=== PATIENT | male | born 1970 | race Caucasian/White ===

== ENCOUNTER 2020-12-23 18:34 | Observation (INO) | payer OTHER, SELFPAY ==
[2020-12-23] VITALS (15 sets, daily range): BP systolic 110–150; BP diastolic 56–74; PULSE 54–66; RESP 17–38; TEMP 36.2; O2SAT 97–100; BMI 41.2
--- NOTE | 2020-12-23 18:37 | DI.RAD.S_ITS ---
PROCEDURE: XR CHEST 1V INDICATIONS: feels of balance, n/v, tingling TECHNIQUE: One view of the chest was acquired. COMPARISON: None. FINDINGS: Surgical changes and devices: None. Lungs and pleura: Lungs are clear. No pleural effusions or pneumothorax. Minimal right basilar atelectasis and infiltrate medially. Mediastinum: Mediastinal contours appear normal. Heart size is normal. Bones and chest wall: No suspicious bony lesions. Overlying soft tissues appear unremarkable. Clavicular cortical sideplate and screws in good position. IMPRESSION: Minimal right basilar atelectasis and or infiltrate Approved by: Олег Garzon M.D. on 12/23/2020 at 18:14
--- NOTE | 2020-12-23 18:37 | DI.CT.S_ITS ---
PROCEDURE: CT HEAD/BRAIN WO CON INDICATIONS: feels off balance, tingling TECHNIQUE: Noncontrast 4.5 mm thick angled axial sections acquired from the foramen magnum to the vertex, with coronal and sagittal reformats. For radiation dose reduction, the following was used: automated exposure control, adjustment of mA and/or kV according to patient size. COMPARISON: None. FINDINGS: Image quality: Excellent. CSF spaces: Basal cisterns are patent. No extra-axial fluid collections. Ventricles are normal in size and shape. Brain: No midline shift. No intracranial masses or hemorrhage. Bal-white matter interface is normal. Skull and face: Calvarium and visualized facial bones are intact, without suspicious lesions. Sinuses: Visualized sinuses and mastoids are clear. IMPRESSION: No evidence acute stroke, hemorrhage, or mass. Dictated by: Duncan Gan M.D. on 12/23/2020 at 19:25 Approved by: Duncan Gan M.D. on 12/23/2020 at 19:25
[2020-12-23] MEDS: ASPIRIN 81 MG CHEW TAB 324 MG PO (19:34)
[2020-12-23] MEDS: SODIUM CHLORIDE 0.9% 1,000 ML 150 ML IV (19:34)
[2020-12-23 19:44] LABS: Add Manual Diff / Slide Review NO; Basophils Absolute Auto 100 /uL (0-100); Basophils Percent Auto 0.8 % (0-2); Eosinophils Absolute Auto 100 /uL (0-450); Eosinophils Percent Auto 0.6 % (2-4); Hematocrit 42.9 % (41-53); Hemoglobin 14.5 g/dL (13.5-17.5); Lymphocytes Absolute Auto 1900 /uL (1100-4500); Lymphocytes Percent Auto 15.5 % (25-40); Mean Corpuscular HGB Conc 33.8 % (30-36); Mean Corpuscular Hemoglobin 30.6 PG (26-34); Mean Corpuscular Volume 90.4 fL (80-100); Monocytes Absolute Auto 700 /uL (0-900); Monocytes Percent Auto 5.4 % (3-14); Neutrophils Absolute Auto 9400 /uL (1500-7000); Neutrophils Percent Auto 77.7 % (50-75); Platelet Count 290 X10^3/uL (150-400); Red Blood Cell Count 4.74 X10^6/uL (4.5-5.9); Red Cell Distribution Width 14.2 % (11.6-14.8); White Blood Cell Count 12.1 X10^3/uL (4.5-11.0)
[2020-12-23] MEDS: ONDANSETRON 4 MG/2 ML INJ IV ×2 (19:47→23:27)
[2020-12-23 19:55] LABS: Alanine Aminotransferase 20 IU/L (<50); Albumin 4.9 g/dL (3.5-5.0); Albumin Globulin Ratio 1.5 (1.0-2.8); Alkaline Phosphatase 104 U/L (38-126); Aspartate Aminotransferase 26 IU/L (17-59); BUN Creatinine Ratio 10.2 (6-22); Bilirubin Total 0.8 mg/dL (0.2-1.3); Blood Urea Nitrogen 9 mg/dL (9-20); Calcium 9.7 mg/dL (8.4-10.2); Carbon Dioxide 24 mmol/L (22-32); Chloride 105 mmol/L (98-107); Creatine Kinase 113 U/L (55-170); Estimated Glomerular Filt Rate > 60.0 mL/min (>60); Globulin 3.2 g/dL (1.7-4.1); Glucose 125 mg/dL (70-100); HEMOLYSIS < 15 (0-50); Lipase 92 U/L (23-300); Potassium 3.5 mmol/L (3.4-5.1); Sodium 139 mmol/L (137-145); Total Protein 8.1 g/dL (6.3-8.2)
--- NOTE | 2020-12-23 20:02 | ED_ITS ---
HPI - Chest Pain General Chief Complaint: Chest Pain Stated Complaint: Loss of blance Time Seen by Provider: 12/23/20 18:37 Source: EMS Mode of arrival: Wheelchair Limitations: no limitations History of Present Illness HPI narrative: This is a 50-year-old male comes to the emergency department with complaint of generalized feeling unwell he states symptoms started about noon today. Patient was working on his boat. He moved out to [address] and waved down assistance was transported here to the department. He has been nauseated, he had 2 or 3 episodes of nausea and vomiting. He has not had any c hest pain but he has felt sort of short of breath. He states it sort of random. He denies any headaches. He describes generalized muscle aches. He has some chronic back pain which he states is not new. He has got a little bit of left- sided upper quadrant discomfort. He has been mildly constipated but states he did have a dark stool. Patient has had some acid reflux. He also notes that he has had not had any urinary issues no burning, dysuria frequency. He has had no cough cold or congestion. He states he is vaccinated for COVID. He denies any major medical issues. He did recently increase his Zoloft to 50 mg in the last several days from 15/08. He has had some broken bones in surgical repair but no other major surgeries. No allergies to medications. He has remote use of tobac co, no alcohol, no illicit besides THC. He lives in [place] and is visiting the area currently. He is and returns to the area intermittently. Related Data Allergies Allergy/AdvReac Type Severity Reaction Status Date / Time No Known Drug Allergies Allergy Verified 12/23/20 19:31 Review of Systems Review of Systems ROS Unobtainable: All systems reviewed & are unremarkable except as noted in HPI and below Patient History Medical History (Updated 12/24/20 @ 01:27 by SANDRA Ashby) Depression History of fracture of clavicle Surgical History (Updated 12/24/20 @ 01:27 by SANDRA Ashby) History of facial surgery Family History (Updated 12/24/20 @ 01:28 by SANDRA Ashby) Father Leukemia Mother Medical history unknown Social History household members: spouse Smoking Status: Former smoker alcohol intake: current Exam Narrative Exam Narrative: GEN: well nourished, well appearing male, alert and oriented x 3, patient appears to be in mild distress. HEENT: Atraumatic, pupils are equal round reactive to light, extraocular movements are intact, nares are clear, TMs are clear with no fluid, there is no conjunctival pallor. Throat is clear without any exudates, erythema, tonsillar enlargement or uvular deviation HEART: Regular rate and rhythm without murmur, clicks, rubs. Pulses are equal in upper and lower extremities LUNGS:Lungs clear to auscultation, no wheezes, rales, crackles, chest moves symmetrically, no tachypnea accessory muscle use. ABD:bowel sounds normal, soft, mild LUQ tenderness, no guarding, rebound, rigidity, no masses noted, no hepatosplenomegaly, non-distended. :No CVA tenderness MSCL: Non-tender, no muscle atrophy, muscles strength 5/5 upper and lower extremities, full range of motion. NEURO:CN 2-12 intact, sensation normal SKIN: Rash, erythema or skin changes. But patient does have piloerection. Initial Vital Signs Initial Vital Signs: Vital Signs Temperature 97.2 F L 12/23/20 19:27 Pulse Rate 59 L 12/23/20 19:27 Respiratory Rate 17 12/23/20 19:27 Blood Pressure 150/74 H 12/23/20 19:27 Pulse Oximetry 100 12/23/20 19:27 Course Orders Ordered: ED Orders 12/23/20 21:30 Blood Culture Stat COVID19 - ADMIT ([employer] swab/PCR) Stat Respiratory Panel (Film Array) Stat 12/24/20 04:35 Complete Blood Count AUTO DIFF Routine Lactate (Lactic Acid) Routine NT-proBNP (BNP-Adult 18+) Routine Acetaminophen (Acetaminophen 325 Mg Tablet) 650 mg PO Q6HR PRN PRN Reason: Fever/Mild Pain (1-3) Albuterol/Ipratropium (Albuterol/Ipratropium 3 Ml Ampul) 3 ml INH RTQ4HR PRN PRN Reason: Shortness Of Breath Heparin Sodium (Porcine) (Heparin 5,000 Unit/Ml Vial) 5,000 unit SUBCUT BID PRASANNA Sodium Chloride (Normal Saline 0.9%) 1,000 mls @ 150 mls/hr IV CONT PRASANNA Last Admin: 12/24/20 00:56 Dose: 150 mls/hr Documented by: Infusion: 12/23/20 22:55 Dose: 0 mls/hr Documented by: Admin: 12/23/20 19:34 Dose: 150 mls/hr Documented by: PRUDENCIO Naloxone HCl (Naloxone 0.4 Mg/Ml Vial) 0.2 mg IV Q2MIN PRN PRN Reason: Opiate Reversal Ondansetron HCl (Ondansetron 4 Mg/2 Ml Inj) 4 mg IV Q8HR PRN PRN Reason: Nausea And Vomiting Last Admin: 12/23/20 23:27 Dose: 4 mg Documented by: SUE Prednisone (Prednisone 20 Mg Tablet) 40 mg PO DAILY [facility] Stop: 12/29/20 08:59 Discontinued Medications Aspirin (Aspirin 81 Mg Chew Tab) 324 mg PO NOW ONE Stop: 12/23/20 18:38 Last Admin: 12/23/20 19:34 Dose: 324 mg Documented by: PRUDENCIO Ceftriaxone Sodium 2,000 mg/ (Sodium Chloride) 100 mls @ 200 mls/hr IV NOW ONE Stop: 12/23/20 20:13 Last Infusion: 12/23/20 22:24 Dose: 0 mls/hr Documented by: Admin: 12/23/20 21:34 Dose: 200 mls/hr Documented by: ANÍBAL Lactated Ringer's (Lactated Ringers) 3,401.94 mls @ 1,133.98 mls/hr 30 ml/kg infuse over 3 hr (3401.94 ml) IV NOW ONE Stop: 12/23/20 23:33 Last Infusion: 12/23/20 23:00 Dose: 0 mls/hr Documented by: Infusion: 12/23/20 22:55 Dose: 1,133.98 mls/hr Documented by: Admin: 12/23/20 21:35 Dose: 1,133.98 mls/hr Documented by: ANÍBAL Metoclopramide HCl 10 mg/ (Sodium Chloride) 52 mls @ 208 mls/hr IV NOW ONE Stop: 12/24/20 04:14 Lorazepam (Lorazepam 2 Mg/Ml Inj) 0.5 mg IV NOW ONE Stop: 12/24/20 01:46 Last Admin: 12/24/20 02:19 Dose: 0.5 mg Documented by: SUE Metoclopramide HCl (Metoclopramide 10 Mg/2 Ml Inj) 10 mg IV NOW ONE Stop: 12/24/20 04:39 Last Admin: 12/24/20 04:49 Dose: 10 mg Documented by: SUE Ondansetron HCl (Ondansetron 4 Mg/2 Ml Inj) 4 mg IV NOW ONE Stop: 12/23/20 19:38 Last Admin: 12/23/20 19:47 Dose: 4 mg Documented by: ANÍBAL Consultations Consultation #1: ANASTASIA Jordan, accepts for observation. Patient does have what appears to be pneumonia on chest x-ray. His labs and vitals are otherwise reassuring except for lactate in the 3 range. Patient was given fluids, lack cultures were obtained. Patient was covered with IV antibiotics. Vital Signs Vital signs: Vital Signs - 8 hr 12/23/20 22:00 12/23/20 22:01 12/23/20 22:30 Pulse Rate 61 61 56 L Respiratory Rate 32 H 31 H 38 H Blood Pressure 122/59 L Pulse Oximetry 100 MDM - Chest Pain Lab Data Result diagrams: 12/24/20 04:35 12/23/20 19:40 Labs: Lab Results 12/23/20 12/23/20 12/23/20 Range/Units 19:40 19:40 19:40 WBC 12.1 H (4.5-11.0) X10^3/uL RBC 4.74 (4.5-5.9) X10^6/uL Hgb 14.5 (13.5-17.5) g/dL Hct 42.9 (41-53) % MCV 90.4 (80-100) fL MCH 30.6 (26-34) PG MCHC 33.8 (30-36) % RDW 14.2 (11.6-14.8) % Plt Count 290 (150-400) X10^3/uL Neut % (Auto) 77.7 H (50-75) % Lymph % (Auto) 15.5 L (25-40) % Turner % (Auto) 5.4 (3-14) % Eos % (Auto) 0.6 L (2-4) % Baso % (Auto) 0.8 (0-2) % Neut # (Auto) 9400 H (5600-8952) /uL Lymph # (Auto) 1900 (8855-3195) /uL Turner # (Auto) 700 (0-900) /uL Eos # (Auto) 100 (0-450) /uL Baso # (Auto) 100 (0-100) /uL Sodium 139 (137-145) mmol/L Potassium 3.5 (3.4-5.1) mmol/L Chloride 105 (98-107) mmol/L Carbon Dioxide 24 (22-32) mmol/L BUN 9 (9-20) mg/dL Creatinine 0.88 (0.66-1.25) mg/dL Estimated GFR > 60.0 (>60) mL/min BUN/Creatinine Ratio 10.2 (6-22) Glucose 125 H (70-100) mg/dL Lactate (0.7-2.1) mmol/L Calcium 9.7 (8.4-10.2) mg/dL Total Bilirubin 0.8 (0.2-1.3) mg/dL AST 26 (17-59) IU/L ALT 20 (<50) IU/L Alkaline Phosphatase 104 (38-126) U/L Total Creatine Kinase 113 (55-170) U/L CK-MB (CK-2) 0.38 (<2.37) ng/mL CK-MB (CK-2) Rel Index 0.3 L (1.5-5.0) % Troponin I < 0.012 (0.01-0.034) ng/mL C-Reactive Protein (<1.0) mg/dL NT-Pro-B Natriuret Pep 61 (<125) pg/mL Total Protein 8.1 (6.3-8.2) g/dL Albumin 4.9 (3.5-5.0) g/dL Globulin 3.2 (1.7-4.1) g/dL Albumin/Globulin Ratio 1.5 (1.0-2.8) Lipase 92 (23-300) U/L Procalcitonin (<0.5) ng/mL Chlamy pneumoniae PCR (Not Detect) Adenovirus (PCR) (Not Detect) B. pertussis DNA (PCR) (Not Detecte) B.parapertussis DNA PCR (Not Detecte) Coronavirus OC43 (PCR) (Not Detect) Coronavirus HKU1 (PCR) (Not Detect) Coronavirus 229E (PCR) (Not Detect) SARS-CoV-2 (PCR) Negative (Negative) Coronavirus NL63 (PCR) (Not Detect) Human Metapneumovir PCR (Not Detect) Influenza Type A (PCR) (Not Detect) Influenza Type B (PCR) (Not Detect) M. pneumoniae (PCR) (Not Detect) Parainfluenza 1 (PCR) (Not Detect) Parainfluenza 2 (PCR) (Not Detect) Parainfluenza 3 (PCR) (Not Detect) Parainfluenza 4 (PCR) (Not Detect) RSV (PCR) (Not Detect) Entero/Rhino (PCR) (Not Detect) 12/23/20 12/23/20 12/23/20 Range/Units 19:40 19:40 19:40 WBC (4.5-11.0) X10^3/uL RBC (4.5-5.9) X10^6/uL Hgb (13.5-17.5) g/dL Hct (41-53) % MCV (80-100) fL MCH (26-34) PG MCHC (30-36) % RDW (11.6-14.8) % Plt Count (150-400) X10^3/uL Neut % (Auto) (50-75) % Lymph % (Auto) (25-40) % Turner % (Auto) (3-14) % Eos % (Auto) (2-4) % Baso % (Auto) (0-2) % Neut # (Auto) (8632-8178) /uL Lymph # (Auto) (7582-3745) /uL Turner # (Auto) (0-900) /uL Eos # (Auto) (0-450) /uL Baso # (Auto) (0-100) /uL Sodium (137-145) mmol/L Potassium (3.4-5.1) mmol/L Chloride (98-107) mmol/L Carbon Dioxide (22-32) mmol/L BUN (9-20) mg/dL Creatinine (0.66-1.25) mg/dL Estimated GFR (>60) mL/min BUN/Creatinine Ratio (6-22) Glucose (70-100) mg/dL Lactate 3.3 H (0.7-2.1) mmol/L Calcium (8.4-10.2) mg/dL Total Bilirubin (0.2-1.3) mg/dL AST (17-59) IU/L ALT (<50) IU/L Alkaline Phosphatase (38-126) U/L Total Creatine Kinase (55-170) U/L CK-MB (CK-2) (<2.37) ng/mL CK-MB (CK-2) Rel Index (1.5-5.0) % Troponin I (0.01-0.034) ng/mL C-Reactive Protein 0.7 (<1.0) mg/dL NT-Pro-B Natriuret Pep (<125) pg/mL Total Protein (6.3-8.2) g/dL Albumin (3.5-5.0) g/dL Globulin (1.7-4.1) g/dL Albumin/Globulin Ratio (1.0-2.8) Lipase (23-300) U/L Procalcitonin < 0.03 (<0.5) ng/mL Chlamy pneumoniae PCR (Not Detect) Adenovirus (PCR) (Not Detect) B. pertussis DNA (PCR) (Not Detecte) B.parapertussis DNA PCR (Not Detecte) Coronavirus OC43 (PCR) (Not Detect) Coronavirus HKU1 (PCR) (Not Detect) Coronavirus 229E (PCR) (Not Detect) SARS-CoV-2 (PCR) (Negative) Coronavirus NL63 (PCR) (Not Detect) Human Metapneumovir PCR (Not Detect) Influenza Type A (PCR) (Not Detect) Influenza Type B (PCR) (Not Detect) M. pneumoniae (PCR) (Not Detect) Parainfluenza 1 (PCR) (Not Detect) Parainfluenza 2 (PCR) (Not Detect) Parainfluenza 3 (PCR) (Not Detect) Parainfluenza 4 (PCR) (Not Detect) RSV (PCR) (Not Detect) Entero/Rhino (PCR) (Not Detect) 12/23/20 12/23/20 12/23/20 Range/Units 21:30 21:30 22:30 WBC (4.5-11.0) X10^3/uL RBC (4.5-5.9) X10^6/uL Hgb (13.5-17.5) g/dL Hct (41-53) % MCV (80-100) fL MCH (26-34) PG MCHC (30-36) % RDW (11.6-14.8) % Plt Count (150-400) X10^3/uL Neut % (Auto) (50-75) % Lymph % (Auto) (25-40) % Turner % (Auto) (3-14) % Eos % (Auto) (2-4) % Baso % (Auto) (0-2) % Neut # (Auto) (5405-8704) /uL Lymph # (Auto) (2655-2963) /uL Turner # (Auto) (0-900) /uL Eos # (Auto) (0-450) /uL Baso # (Auto) (0-100) /uL Sodium (137-145) mmol/L Potassium (3.4-5.1) mmol/L Chloride (98-107) mmol/L Carbon Dioxide (22-32) mmol/L BUN (9-20) mg/dL Creatinine (0.66-1.25) mg/dL Estimated GFR (>60) mL/min BUN/Creatinine Ratio (6-22) Glucose (70-100) mg/dL Lactate 3.3 H (0.7-2.1) mmol/L Calcium (8.4-10.2) mg/dL Total Bilirubin (0.2-1.3) mg/dL AST (17-59) IU/L ALT (<50) IU/L Alkaline Phosphatase (38-126) U/L Total Creatine Kinase (55-170) U/L CK-MB (CK-2) (<2.37) ng/mL CK-MB (CK-2) Rel Index (1.5-5.0) % Troponin I (0.01-0.034) ng/mL C-Reactive Protein (<1.0) mg/dL NT-Pro-B Natriuret Pep (<125) pg/mL Total Protein (6.3-8.2) g/dL Albumin (3.5-5.0) g/dL Globulin (1.7-4.1) g/dL Albumin/Globulin Ratio (1.0-2.8) Lipase (23-300) U/L Procalcitonin (<0.5) ng/mL Chlamy pneumoniae PCR Not detected (Not Detect) Adenovirus (PCR) Not detected (Not Detect) B. pertussis DNA (PCR) Not detected (Not Detecte) B.parapertussis DNA PCR Not detected (Not Detecte) Coronavirus OC43 (PCR) Not detected (Not Detect) Coronavirus HKU1 (PCR) Not detected (Not Detect) Coronavirus 229E (PCR) Not detected (Not Detect) SARS-CoV-2 (PCR) Negative Not detected (Negative) Coronavirus NL63 (PCR) Not detected (Not Detect) Human Metapneumovir PCR Not detected (Not Detect) Influenza Type A (PCR) Not detected (Not Detect) Influenza Type B (PCR) Not detected (Not Detect) M. pneumoniae (PCR) Not detected (Not Detect) Parainfluenza 1 (PCR) Not detected (Not Detect) Parainfluenza 2 (PCR) Not detected (Not Detect) Parainfluenza 3 (PCR) Not detected (Not Detect) Parainfluenza 4 (PCR) Not detected (Not Detect) RSV (PCR) Not detected (Not Detect) Entero/Rhino (PCR) Not detected (Not Detect) Urine Dip Bedside Urine Glucose Negative Bedside Urine Bilirubin - Negative Bedside Urine Ketone + 15 Urine Specific [place] 1.005 Bedside Urine Occult Blood - Negative Bedside Urine pH 8.5 Bedside Urine Protein - Negative Bedside Urine Urobilinogen - Negative Bedside Urine Nitrite - Negative Bedside Urine Leukocytes - Negative Esterase Imaging Data CT scan - head: Radiologist's Impression: [address] [address] [address] Scan Report Signed Patient: Bret Covington MR#: [id number] : 1970 Acct:[id number] Age/Sex: 50 / M Date of Service: 12/23/20 Loc: ED Accession Number: [id number] ?? Procedure: CT head/brain wo con Ordering Provider: Ankita Guerra D.O. PROCEDURE:? CT HEAD/BRAIN WO CON ? INDICATIONS:? feels off balance, tingling ? TECHNIQUE:? Noncontrast 4.5 mm thick angled axial sections acquired from the foramen magnum to the vertex, with coronal and sagittal reformats.? For radiation dose reduction, the following was used:? automated exposure control, adjustment of mA and/or kV according to patient size.? ? COMPARISON:? None. ? FINDINGS:? Image quality:? Excellent.? ? CSF spaces:? Basal cisterns are patent.? No extra-axial fluid collections.? Ventricles are normal in size and shape.? ? Brain:? No midline shift.? No intracranial masses or hemorrhage.? Bal-white matter interface is normal.? ? Skull and face:? Calvarium and visualized facial bones are intact, without suspicious lesions.? ? Sinuses:? Visualized sinuses and mastoids are clear.? ? IMPRESSION:? No evidence acute stroke, hemorrhage, or mass. ? ? Dictated by: Duncan Gan M.D. on 12/23/2020 at 19:25 ? ? Approved by: Duncan Gan M.D. on 12/23/2020 at 19:25?? Chest x-ray: Radiologist's Impression: Launch?[place] [address] XRay Report Signed Patient: Bret Covington MR#: [id number] : 1970 Acct:[id number] Age/Sex: 50 / M Date of Service: 12/23/20 Loc: ED Accession Number: [id number] ?? Procedure: XR chest 1V Ordering Provider: Ankita Guerra D.O. PROCEDURE:? XR CHEST 1V ? INDICATIONS:? feels of balance, n/v, tingling ? TECHNIQUE:? One view of the chest was acquired.? ? COMPARISON:? None. ? FINDINGS:? ? Surgical changes and devices:? None.? ? Lungs and pleura:? Lungs are clear.? No pleural effusions or pneumothorax.? Minimal right basilar atelectasis and infiltrate medially. ? Mediastinum:? Mediastinal contours appear normal.? Heart size is normal.? ? Bones and chest wall:? No suspicious bony lesions.? Overlying soft tissues appear unremarkable.? Clavicular cortical sideplate and screws in good position. ? IMPRESSION:? ? Minimal right basilar atelectasis and or infiltrate ? ? ? Approved by: Олег Garzon M.D. on 12/23/2020 at 18:14? CT scan - abdomen/pelvis: Radiologist's Impression: [address] [address] [address] Scan Report Signed Patient: Bret Covington MR#: [id number] : 1970 Acct:[id number] Age/Sex: 50 / M Date of Service: 12/23/20 Loc: ED Accession Number: [id number] ?? Procedure: CT abdomen pelvis w con Ordering Provider: Ankita Guerra D.O. PROCEDURE:? CT ABDOMEN PELVIS W CON ? INDICATIONS:? fevers, chills, vomiting ? TECHNIQUE:? After the administration of intravenous contrast, axial sections acquired from the lung bases to the pubic symphysis.? Coronal and sagittal reformats were performed.? For radiation dose reduction, the following was used:? automated exposure control, adjustment of mA and/or kV according to patient size.? ? COMPARISON:? None. ? FINDINGS:? Image quality:? Excellent.? ? Lung bases:? Unremarkable. Heart:? No significant findings. ? ABDOMEN: Liver:? Unremarkable.? ? Gallbladder:? Unremarkable.? ? Biliary ducts:? Unremarkable.? ? Pancreas:? Unremarkable.? ? Spleen:? Unremarkable.? ? Adrenal Glands:? Unremarkable.? ? Kidneys and Ureters:? Unremarkable.? ? ? Stomach and Bowel:? Stomach, small bowel loops, and colon are unremarkable.? Peritoneum:? No abnormal intraperitoneal fluid.? No free air.? ? Ventral Wall: ? No hernias.? Abdominal Nodes:? No retroperitoneal or mesenteric adenopathy by size criteria.? Vessels:? Aorta and inferior vena cava are normal in size.? ? PELVIS: Pelvic Organs:? Unremarkable.? ? Bladder:? Unremarkable.? ? Pelvic Nodes: No enlarged lymph nodes.? Miscellaneous:? Small bilateral inguinal hernias. ? Bones:? Lower lumbar degenerative change.? Disc bulges at L4-L5 and L5-S1.? No lytic or blastic bony lesions.? No compression fractures. ? ? IMPRESSION:? ? 1. No evidence of acute abdominal process. ? 2. Small bilateral fat containing inguinal hernias.? ? Dictated by: Duncan Gan M.D. on 12/23/2020 at 21:27 ? ? Approved by: Duncan Gan M.D. on 12/23/2020 at 21:29?? ECG Data Attestation: I personally reviewed and interpreted this ECG as follows: Prior ECG tracings: not available for review Interpretation: Sinus bradycardia with premature atrial complexes. Rate of 54 AL 140 QRS 82 and QTC 434. No acute ST-elevation depression noted. MDM Narrative Medical decision making narrative: This is a 50-year-old male who comes to the emergency department with multiple complaints. Patient's vitals are reassuring but is lactate is quite elevated. He he appears to have an infection, procalcitonin was negative, COVID swab is negative, respiratory panel was included which was also negative. Patient's chest x-ray shows infiltrate. He did have some left upper quadrant tenderness and has had some nausea and vomiting so CT abdomen pelvis was obtained does not show any acute infection. His labs otherwise do show a leukocytosis. Patient was covered with antibiot ics, sepsis fluids were initiated. Patient had Zofran which did not seem to resolve his nausea. Discharge Plan Departure Patient Disposition: Admitted as Observation Clinical Impression: Pneumonia Admit Date/Time: 12/23/20 22:30 Admit Provider: Neelima Jordan
[2020-12-23 20:03] LABS: COVID19 -Nasal RAPID Negative (Negative)
[2020-12-23 20:07] LABS: NT-proBNP (BNP-Adult 18+) 61 pg/mL (<125); Troponin I < 0.012 ng/mL (0.01-0.034)
[2020-12-23 20:10] LABS: CKMB % Relative Index 0.3 % (1.5-5.0); Creatine Kinase MB 0.38 ng/mL (<2.37)
[2020-12-23 20:24] LABS: Lactate (Lactic Acid) 3.3 mmol/L (0.7-2.1)
--- NOTE | 2020-12-23 20:25 | DI.CT.S_ITS ---
PROCEDURE: CT ABDOMEN PELVIS W CON INDICATIONS: fevers, chills, vomiting TECHNIQUE: After the administration of intravenous contrast, axial sections acquired from the lung bases to the pubic symphysis. Coronal and sagittal reformats were performed. For radiation dose reduction, the following was used: automated exposure control, adjustment of mA and/or kV according to patient size. COMPARISON: None. FINDINGS: Image quality: Excellent. Lung bases: Unremarkable. Heart: No significant findings. ABDOMEN: Liver: Unremarkable. Gallbladder: Unremarkable. Biliary ducts: Unremarkable. Pancreas: Unremarkable. Spleen: Unremarkable. Adrenal Glands: Unremarkable. Kidneys and Ureters: Unremarkable. Stomach and Bowel: Stomach, small bowel loops, and colon are unremarkable. Peritoneum: No abnormal intraperitoneal fluid. No free air. Ventral Wall: No hernias. Abdominal Nodes: No retroperitoneal or mesenteric adenopathy by size criteria. Vessels: Aorta and inferior vena cava are normal in size. PELVIS: Pelvic Organs: Unremarkable. Bladder: Unremarkable. Pelvic Nodes: No enlarged lymph nodes. Miscellaneous: Small bilateral inguinal hernias. Bones: Lower lumbar degenerative change. Disc bulges at L4-L5 and L5-S1. No lytic or blastic bony lesions. No compression fractures. IMPRESSION: 1. No evidence of acute abdominal process. 2. Small bilateral fat containing inguinal hernias. Dictated by: Duncan Gan M.D. on 12/23/2020 at 21:27 Approved by: Duncan Gan M.D. on 12/23/2020 at 21:29
[2020-12-23] MEDS: cefTRIAXone 2,000 MG in SODIUM CHLORIDE 0.9% 100 ML 200 ML IV (21:34)
[2020-12-23] MEDS: LACTATED RINGERS 1133.98 ML IV (21:35)
[2020-12-23 22:05] LABS: Procalcitonin < 0.03 ng/mL (<0.5)
[2020-12-23 22:16] LABS: Reflexed Lactate in 2 Hours Y
[2020-12-23 22:27] LABS: COVID19 - ADMIT (NP swab/PCR) Negative (Negative)
[2020-12-23 22:46] LABS: Lactate 2HR (Lactic Acid Rflx) 3.3 mmol/L (0.7-2.1)
[2020-12-23 23:28] LABS: Adenovirus Not Detected (Not Detect); Coronavirus 229E Not Detected (Not Detect); Coronavirus HKU1 Not Detected (Not Detect); Coronavirus NL 63 Not Detected (Not Detect); Coronavirus OC43 Not Detected (Not Detect); SARS- CoV-2 Not Detected (Not Detecte)
[2020-12-23 23:29] LABS: B. parapertussis Not Detected (Not Detecte); Bordetella pertussis Not Detected (Not Detecte); Chlamydophila pneumoniae Not Detected (Not Detect); Human Metapneumovirus Not Detected (Not Detect); Human Rhinovirus/Enterovirus Not Detected (Not Detect); Influenza A Not Detected (Not Detect); Influenza B Not Detected (Not Detect); Mycoplasma pneumoniae Not Detected (Not Detect); Parainfluenza Virus 1 Not Detected (Not Detect); Parainfluenza Virus 2 Not Detected (Not Detect); Parainfluenza Virus 3 Not Detected (Not Detect); Parainfluenza Virus 4 Not Detected (Not Detect); Respiratory Syncytial Virus Not Detected (Not Detect)
--- NOTE | 2020-12-23 23:39 | PM.HP.1 ---
History of Present Illness History of Present Illness Date Patient Seen: 12/23/20 Time Patient Seen: 22:25 Chief complaint: Loss of blance Narrative: This is a 50-year-old male Bret Covington who presented to the ED with complaint of generalized feeling unwell he states symptoms started about noon today.? He has been nauseated, he had 2 or 3 episodes of vomiting.? He denies chest pain, occasional mild shortness of breath.? He states it sort of random.? He denies any headaches.? He describes generalized muscle aches.? He has some chronic back pain which is unchanged.? He has got a little bit of left-sided upper quadrant discomfort.? He has been mildly constipated but states he did have a dark stool.? Patient has had some acid reflux.? He also notes that he has had not had any urinary issues no burning, dysuria frequency.? He has had no cough cold or congestion.? He states he is vaccinated for COVID.? He denies any major medical issues, or medications with the exception of Zoloft.? He did recently increase his Zoloft to 50 mg in the last several days from 25.? He has had some broken bones in surgical repair but no other major surgeries.? No allergies to medications.? He has remote use of tobacco, no alcohol, no illicit besides THC.? He lives in [place] and is visiting the area currently. Upon admit patient was for the most part unwilling to participate in HPI or ROS, he was restless and agitated in the bed grimacing but denied pain or discomfort. He was angered by admitting questions stating why are you asking me these questions. Patient's blood pressure was mildly elevated in the ED 150/70 far, but the rest of his vitals were stable, 100% O2 saturation on room air. Patient had a mild elevated WBC 12.1 with neutrophils 9400, with an elevated lactate 3.3 which continued to be 3.3 on repeat, patient's troponin BNP, procalcitonin, and lipase were all within normal limits. COVID PCR was negative. Patient's head CT demonstrated no evidence of stroke hemorrhage or mass, patient's CT of the abdomen pelvis was also unremarkable for any acute processes, patient's chest x-ray demonstrated minimal right basilar atelectasis or infiltrates possibly suggestive of atypical pneumonia. K shins EKG with sinus Frantz with a rate of [address] or T-wave changes. Patient admitted with leukocytosis-of unknown etiology, and elevated blood pressure without the diagnosis of hypertension Patient History Medical History (Updated 12/24/20 @ 01:27 [facility] Depression History of fracture of clavicle Surgical History (Updated 12/24/20 @ 01:27 by MILES AshbyBENITA) History of facial surgery Family & Social History Family History (Updated 12/24/20 @ 01:27 by MILES AshbyBENITA) Father Leukemia Mother Medical history unknown Safety & Behavioral: Feels Safe in Current Yes Environment Been Physically Hurt or No Threatened By a Person Meds Home Medications and Allergies Allergies Allergy/AdvReac Type Severity Reaction Status Date / Time No Known Drug Allergies Allergy Verified 12/23/20 19:31 Review of Systems Review of Systems Narrative: Patient was unwilling to contribute to HPI in ROS affectively. Exam Vital Signs (past 8 hours): - 12/23/20 19:27 12/23/20 19:29 12/23/20 19:30 Temperature 97.2 F L Pulse Rate 59 L 65 61 Respiratory Rate 17 21 23 Blood Pressure 150/74 H 141/62 H Pulse Oximetry 100 100 100 12/23/20 19:31 12/23/20 20:00 12/23/20 20:01 Temperature Pulse Rate 64 54 L 64 Respiratory Rate 20 21 30 H Blood Pressure 136/61 113/70 Pulse Oximetry 100 100 100 12/23/20 20:30 12/23/20 21:03 12/23/20 21:30 Temperature Pulse Rate 60 56 L 58 L Respiratory Rate 19 35 H 24 Blood Pressure 119/58 L Pulse Oximetry 100 97 99 12/23/20 21:38 12/23/20 22:00 12/23/20 22:01 Temperature Pulse Rate 57 L 61 61 Respiratory Rate 29 H 32 H 31 H Blood Pressure 110/56 L 122/59 L Pulse Oximetry 12/23/20 22:30 12/23/20 22:55 Temperature Pulse Rate 56 L 66 Respiratory Rate 38 H 19 Blood Pressure 136/57 L Pulse Oximetry 100 100 Oxygen Delivery Method Room Air Oxygen Flow Rate 0 Narrative Exam Narrative: General: Patient is a well-developed, well-nourished male, agitated, restless, twitchy in bed constantly grimacing but denying pain, discomfort, or distress at this time. Patient was openly resistant and agitated by healthcare intervention and worker's. HEENT: Normocephalic, atraumatic, extraocular muscles intact, oral pharynx is clear and mucous membranes are dry. Neck is supple and symmetric, trachea is midline, no adenopathy, no thyroid enlargement, nontender, no masses palpated. Negative for JVD Chest: Normal AP diameter and contour without kyphoscoliosis, no nasal flaring, retractions, or tachypneic labored Lungs: Auscultation of all lung johnson are clear without adventitious sounds, wheezes, rhonchi, or rales. Cardio: S1 & S2 with regular rate and rhythm without murmur, rubs, or gallops, no carotid bruit, no cardiac pulsations present. Abdomen: Soft nontender, negative for organomegaly, or masses. Bowel sounds are present in all 4 quadrants without guarding or rebound, no CVA tenderness. Musculoskeletal: Muscle strength and tone are equal within normal limits, no deformity, crepitus, effusions, cyanosis, clubbing or edema present. Full range of motion intact radial and pedal pulses are normal. Skin: Warm dry and intact without rashes, ulcerations or petechiae. Neuro: Alert and orientated x3, strength is +5/5 in all extremities, sensation to touch intact, no gross deficits noted of cranial nerves. Psych: Patient has a well-kept appearance, inappropriate affect, mental status, behavior,attitude, thought context and judgments were inappropriate for age and circumstance. Because no family was at the bedside during admit unsure if this is patient's baseline behavior or if this is an altered mental status/encephalopathy? Objective Labs Result Diagrams: 12/23/20 19:40 12/23/20 19:40 Labs: Laboratory Results - last 24 hr 12/23/20 12/23/20 12/23/20 19:40 19:40 19:40 WBC 12.1 H RBC 4.74 Hgb 14.5 Hct 42.9 MCV 90.4 MCH 30.6 MCHC 33.8 RDW 14.2 Plt Count 290 Neut % (Auto) 77.7 H Lymph % (Auto) 15.5 L [place] % (Auto) 5.4 Eos % (Auto) 0.6 L Baso % (Auto) 0.8 Neut # (Auto) 9400 H Lymph # (Auto) 1900 [place] # (Auto) 700 Eos # (Auto) 100 Baso # (Auto) 100 Sodium 139 Potassium 3.5 Chloride 105 Carbon Dioxide 24 BUN 9 Creatinine 0.88 Estimated GFR > 60.0 BUN/Creatinine Ratio 10.2 Glucose 125 H Lactate Calcium 9.7 Total Bilirubin 0.8 AST 26 ALT 20 Alkaline Phosphatase 104 Total Creatine Kinase 113 CK-MB (CK-2) 0.38 CK-MB (CK-2) Rel Index 0.3 L Troponin I < 0.012 NT-Pro-B Natriuret Pep 61 Total Protein 8.1 Albumin 4.9 Globulin 3.2 Albumin/Globulin Ratio 1.5 Lipase 92 Procalcitonin Chlamy pneumoniae PCR Adenovirus (PCR) B. pertussis DNA (PCR) B.parapertussis DNA PCR Coronavirus OC43 (PCR) Coronavirus HKU1 (PCR) Coronavirus 229E (PCR) SARS-CoV-2 (PCR) Negative Coronavirus NL63 (PCR) Human Metapneumovir PCR Influenza Type A (PCR) Influenza Type B (PCR) M. pneumoniae (PCR) Parainfluenza 1 (PCR) Parainfluenza 2 (PCR) Parainfluenza 3 (PCR) Parainfluenza 4 (PCR) RSV (PCR) Entero/Rhino (PCR) 12/23/20 12/23/20 12/23/20 19:40 19:40 21:30 WBC RBC Hgb Hct MCV MCH MCHC RDW Plt Count Neut % (Auto) Lymph % (Auto) [place] % (Auto) Eos % (Auto) Baso % (Auto) Neut # (Auto) Lymph # (Auto) [place] # (Auto) Eos # (Auto) Baso # (Auto) Sodium Potassium Chloride Carbon Dioxide BUN Creatinine Estimated GFR BUN/Creatinine Ratio Glucose Lactate 3.3 H Calcium Total Bilirubin AST ALT Alkaline Phosphatase Total Creatine Kinase CK-MB (CK-2) CK-MB (CK-2) Rel Index Troponin I NT-Pro-B Natriuret Pep Total Protein Albumin Globulin Albumin/Globulin Ratio Lipase Procalcitonin < 0.03 Chlamy pneumoniae PCR Adenovirus (PCR) B. pertussis DNA (PCR) B.parapertussis DNA PCR Coronavirus OC43 (PCR) Coronavirus HKU1 (PCR) Coronavirus 229E (PCR) SARS-CoV-2 (PCR) Negative Coronavirus NL63 (PCR) Human Metapneumovir PCR Influenza Type A (PCR) Influenza Type B (PCR) M. pneumoniae (PCR) Parainfluenza 1 (PCR) Parainfluenza 2 (PCR) Parainfluenza 3 (PCR) Parainfluenza 4 (PCR) RSV (PCR) Entero/Rhino (PCR) 12/23/20 12/23/20 21:30 22:30 WBC RBC Hgb Hct MCV MCH MCHC RDW Plt Count Neut % (Auto) Lymph % (Auto) [place] % (Auto) Eos % (Auto) Baso % (Auto) Neut # (Auto) Lymph # (Auto) [place] # (Auto) Eos # (Auto) Baso # (Auto) Sodium Potassium Chloride Carbon Dioxide BUN Creatinine Estimated GFR BUN/Creatinine Ratio Glucose Lactate 3.3 H Calcium Total Bilirubin AST ALT Alkaline Phosphatase Total Creatine Kinase CK-MB (CK-2) CK-MB (CK-2) Rel Index Troponin I NT-Pro-B Natriuret Pep Total Protein Albumin Globulin Albumin/Globulin Ratio Lipase Procalcitonin Chlamy pneumoniae PCR Not detected Adenovirus (PCR) Not detected B. pertussis DNA (PCR) Not detected B.parapertussis DNA PCR Not detected Coronavirus OC43 (PCR) Not detected Coronavirus HKU1 (PCR) Not detected Coronavirus 229E (PCR) Not detected SARS-CoV-2 (PCR) Not detected Coronavirus NL63 (PCR) Not detected Human Metapneumovir PCR Not detected Influenza Type A (PCR) Not detected Influenza Type B (PCR) Not detected M. pneumoniae (PCR) Not detected Parainfluenza 1 (PCR) Not detected Parainfluenza 2 (PCR) Not detected Parainfluenza 3 (PCR) Not detected Parainfluenza 4 (PCR) Not detected RSV (PCR) Not detected Entero/Rhino (PCR) Not detected Assessment & Plan Assessment & Plan narrative: Patient is a 50-year-old male Leonardo Covington who rehab ports only a history for depression in which he takes Zoloft, no other medical conditions who presented to the ED today with nausea and vomiting and feeling poorly. Patient was agitated, restless, twitchy and unwilling to participate in HPI or ROS upon admit. Patient admitted with leukocytosis of unknown etiology, elevated blood pressure without the diagnosis of hypertension. 1. Leukocytosis of unknown etiology, neutrophilic, acute, present on admission -I suspect possible viral pneumonia -WBC 12.1, neutrophils 9400, lactate 3.3, 3.3 on repeat, BNP, procalcitonin, and lipase were all within normal limits. COVID PCR was negative. -chest x-ray demonstrated minimal right basilar atelectasis or infiltrates possibly suggestive of possible pneumonia. -unsure if patient's inappropriate behavior and agitation are his baseline, if there is some sort of substance abuse, or this is encephalopathy? Again head CT demonstrated no evidence of acute process, stroke, hemorrhage or masses. Patient's liver enzymes were not elevated suggestive of alcohol abuse. -ordered respiratory panel, urine drug screen, urinalysis -patient received 2 g of Rocephin in the ED, will continue LR at 60 cc an hour recheck WBC in the a.m. will not treat with antibiotics at this time based on negative procalcitonin, again will reassess in the a.m. 2. Elevated blood pressure without the diagnosis of hypertension, acute, present on admission -initial BP on admission 150/74, has since resolved to 132/73 -will continue to monitor 3. Depression, chronic, present on admission -on know if anxiety associated depression-patient was unwilling to provide information. -continue patient's Zoloft 50 mg q.day 4. Obesity as evidence by BMI of 41.2, acute on chronic, present on admission -consideration will be given for dietary counseling Code status:Full Surrogate decision maker: Spouse Emily Covington COVID PCR:Negative COVID vaccination: Vaccinated 2020 DVT/VTE prophylaxis: Heparin 5000 units b.i.d. and SCDs Disposition: Patient admitted for observation estimated length of stay less than 2 midnights I have utilized all available immediate resources to obtain, update, or review the patient's current medications. I confirmed that the patient's advanced care plan is present, Code status is documented and/or surrogate decision maker is listed in the patient's medical record. Time Spent With Patient Critical Care time: I spent a total of [] minutes of critical care time on this patient's care today; this time is exclusive of procedural time.
[2020-12-24 00:56] LABS: C-Reactive Protein Quant 0.7 mg/dL (<1.0)
[2020-12-24] MEDS: SODIUM CHLORIDE 0.9% 1,000 ML 150 ML IV (00:56)
[2020-12-24] MEDS: LORazepam 2 MG/ML INJ 0.5 MG IV (02:19)
[2020-12-24 03:00] LABS: Ur Creatinine 50 (Normal)
--- NOTE | 2020-12-24 03:00 | PC.NURSE ---
Pt readjust self in bed constantly. Pt is withdrawn, agitated and restless. Pt occasionally drive heaves with not emesis. Pt reports feeling uncomfortable and desires being able to sleep but can not provide more detail. He is withdrawn and forgetful when instructed in simple tasks. When asked about the sharpie writing on his R arm he states, It's just to remind me of things. This RN educates pt about alcohol and opiate withdraws and asks pt if he could expand on his hx. Pt states that he has not drank in over 5 years after going to rehab (different from previous admission answer which was that he never drank). Pt denies opiate use. Pt does not freely share any more information. 0215 pt given 0.5mg ativan IV and has stopped dry heaving and moving in bed 30min post administration.
[2020-12-24 03:01] LABS: UR Morphine/Opiate cutoff 300 Negative (Negative); Ur Specific Gravity 1.005 (Normal); Urine Amphetamines Negative (Negative); Urine Barbiturates Negative (Negative); Urine Benzodiazepines Negative (Negative); Urine Cocaine Negative (Negative); Urine MDMA Negative (Negative); Urine Methadone Negative (Negative); Urine Methamphetamines Negative (Negative); Urine Oxycodone Negative (Negative); Urine Phencyclidine Negative (Negative); Urine Tetrahydrocannabinol Positive (Negative); Urine Tricyclic Antidepressant Negative (Negative); Urine pH 9 (Normal)
[2020-12-24 03:10] LABS: Bacteria Urine None Seen; RBC Urine None Seen (0-5/HPF); WBC Urine 0-1/HPF (0-5/HPF)
[2020-12-24 03:11] LABS: Culture Indicated Urine Cult Not Indicated
[2020-12-24 04:12] VITALS: BP 154/87; PULSE 60; RESP 18; TEMP 36.9; O2SAT 97
[2020-12-24] MEDS: METOCLOPRAMIDE 10 MG/2 ML INJ IV (04:49)
[2020-12-24 04:59] LABS: Add Manual Diff / Slide Review NO; Basophils Absolute Auto 100 /uL (0-100); Basophils Percent Auto 0.5 % (0-2); Eosinophils Absolute Auto 0 /uL (0-450); Hematocrit 41.6 % (41-53); Hemoglobin 14.1 g/dL (13.5-17.5); Lymphocytes Absolute Auto 2200 /uL (1100-4500); Lymphocytes Percent Auto 14.9 % (25-40); Mean Corpuscular HGB Conc 33.9 % (30-36); Mean Corpuscular Hemoglobin 30.8 PG (26-34); Monocytes Absolute Auto 700 /uL (0-900); Monocytes Percent Auto 4.6 % (3-14); Neutrophils Absolute Auto 11700 /uL (1500-7000); Platelet Count 264 X10^3/uL (150-400); Red Blood Cell Count 4.57 X10^6/uL (4.5-5.9); Red Cell Distribution Width 13.2 % (11.6-14.8); White Blood Cell Count 14.6 X10^3/uL (4.5-11.0)
[2020-12-24 05:03] LABS: Lactate (Lactic Acid) 1.5 mmol/L (0.7-2.1)
[2020-12-24 05:09] LABS: NT-proBNP (BNP-Adult 18+) 308 pg/mL (<125)
[2020-12-24] MEDS: SODIUM CHLORIDE 0.9% 1,000 ML 60 ML IV (08:04)
--- NOTE | 2020-12-24 08:06 | PC.NURSE ---
Day shift: Pt seen this AM at approx 0740. Pt was asked how he was feeling and if he was feeling any better. Pt had no response to these questions. He was awake as he was wiggling around in bed and turned from one side to the other. IV infusing per MAR. No s/s of pain or discomfort. Will continue to monitor. Call light in reach.
[2020-12-24 08:51] VITALS: BP 116/63; PULSE 68; RESP 18; TEMP 37.2; O2SAT 95
[2020-12-24 09:20] VITALS: O2SAT 93
[2020-12-24] MEDS: HEPARIN 5,000 UNIT/ML VIAL 5000 UNIT SUBCUT (09:23)
[2020-12-24] MEDS: predniSONE 20 MG TABLET 40 MG PO (09:23)
[2020-12-24 10:04] VITALS: O2SAT 94
[2020-12-24] MEDS: ONDANSETRON 4 MG/2 ML INJ IV (11:31)
--- NOTE | 2020-12-24 11:50 | PC.NURSE ---
Day shift: Pt was able to produce a sputum sample and this was sent to lab. He has also had emesis of approx 100mls with dry heaves as well. Emesis appears to have some blood and Dr Jefferson made aware. Gave IV Zofran per MAY. Pt has been sleeping on and off. He has been calm and cooperative with care. Call light in reach. IV fluids infusing per MAY. He did not eat any breakfast but has been drinking water.
[2020-12-24 13:04] VITALS: BP 104/68; PULSE 71; RESP 18; TEMP 37; O2SAT 97
[2020-12-24] MEDS: levoFLOXacin 250 MG TABLET 750 MG PO (13:49)
--- NOTE | 2020-12-24 13:54 | P.DS_ITS ---
History of Present Illness History of Present Illness Date Patient Seen: 12/24/20 Chief complaint: Loss of blance Narrative: This is a 50-year-old male Bret Covington who presented to the ED with complaint of generalized feeling unwell he states symptoms started about noon today. He has been nauseated, he had 2 or 3 episodes of vomiting. He denies chest pain, occasional mild shortness of breath. He states it sort of random. He denies any headaches. He describes generalized muscle aches. He has some chronic back pain which is unchanged. He has got a little bit of left- sided upper quadrant discomfort. He has been mildly constipated but states he did have a dark stool. Patient has had some acid reflux. He also notes that he has had not had any urinary issues no burning, dysuria frequency. He has had no cough cold or congestion. He states he is vaccinated for COVID. He denies any major medical issues, or medications with the exception of Zoloft. He did recently increase his Zoloft to 50 mg in the last several days from 25. He has had some broken bones in surgical repair but no other major surgeries. No allergies to medications. He has remote use of tobacco, no alcohol, no illicit besides THC. He lives in [place] and is visiting the area currently. Upon admit patient was for the most part unwilling to participate in HPI or ROS, he was restless and agitated in the bed grimacing but denied pain or discomfort. He was angered by admitting questions stating why are you asking me these questions. Patient's blood pressure was mildly elevated in the ED 150/70 far, but the rest of his vitals were stable, 100% O2 saturation on room air. Patient had a mild elevated WBC 12.1 with neutrophils 9400, with an elevated lactate 3.3 which continued to be 3.3 on repeat, patient's troponin BNP, procalcitonin, and lipase were all within normal limits. COVID PCR was negative. Patient's head CT demonstrated no evidence of stroke hemorrhage or mass, patient's CT of the abdomen pelvis was also unremarkable for any acute processes, patient's chest x-ray demonstrated minimal right basilar atelectasis or infiltrates possibly suggestive of atypical pneumonia. K shins EKG with sinus Frantz with a rate of [address] or T-wave changes. Patient a dmitted with leukocytosis-of unknown etiology, and elevated blood pressure without the diagnosis of hypertension Discharge Providers Provider Date of admission: 12/23/20 22:30 Discharge Date: 12/24/20 Discharge provider: Tracie Jefferson MD Summary Hospital Course Discharge Diagnosis: 1. Community-acquired pneumonia 2. Nausea and vomiting resolved 3. Elevated blood pressure 4. Depression Hospital Course: Patient was admitted to the hospital for treatment of nausea and vomiting and probable pneumonia. He had an elevated white count elevated lactate. Patient received ceftriaxone in the emergency room. The following day felt significantly improved. He had no shortness of breath, no fever, no chills. Patient was deemed appropriate for discharge and discharged home on o ral antibiotics. Status at Discharge Cognitive/behavioral status at discharge: oriented Functional status at discharge: independent ambulation Overall status at discharge: patient is back to baseline Exam Vital Signs (past 8 hours): - 12/24/20 08:51 12/24/20 09:20 12/24/20 10:04 Temperature 99.0 F Pulse Rate 68 Respiratory Rate 18 Blood Pressure 116/63 Pulse Oximetry 95 93 94 Oxygen Delivery Method Room Air Oxygen Flow Rate 0 Narrative Exam Narrative: Pleasant gentleman in no acute Resp Other: Lungs clear to auscultation Cardio Other: Cardiac exam: Regular rate and rhythm normal S1-S2 GI Other: Abdomen: Soft nontender nondistended Extrem Other: Extremity no edema Objective Labs Result Diagrams: 12/24/20 04:35 12/23/20 19:40 Labs: Laboratory Results - last 24 hr 12/23/20 12/23/20 12/23/20 19:40 19:40 19:40 WBC 12.1 H RBC 4.74 Hgb 14.5 Hct 42.9 MCV 90.4 MCH 30.6 MCHC 33.8 RDW 14.2 Plt Count 290 Neut % (Auto) 77.7 H Lymph % (Auto) 15.5 L Talbot % (Auto) 5.4 Eos % (Auto) 0.6 L Baso % (Auto) 0.8 Neut # (Auto) 9400 H Lymph # (Auto) 1900 Talbot # (Auto) 700 Eos # (Auto) 100 Baso # (Auto) 100 Sodium 139 Potassium 3.5 Chloride 105 Carbon Dioxide 24 BUN 9 Creatinine 0.88 Estimated GFR > 60.0 BUN/Creatinine Ratio 10.2 Glucose 125 H Lactate Calcium 9.7 Total Bilirubin 0.8 AST 26 ALT 20 Alkaline Phosphatase 104 Total Creatine Kinase 113 CK-MB (CK-2) 0.38 CK-MB (CK-2) Rel Index 0.3 L Troponin I < 0.012 C-Reactive Protein NT-Pro-B Natriuret Pep 61 Total Protein 8.1 Albumin 4.9 Globulin 3.2 Albumin/Globulin Ratio 1.5 Lipase 92 Procalcitonin Urine RBC Urine WBC Urine Bacteria Ur Culture Indicated? U Opiates 300ng/mL cut Ur Oxycodone Screen Urine Methadone Screen Ur Barbiturates Screen U Tricyclic Antidepress Ur Phencyclidine Scrn Ur Amphetamines Screen U Methamphetamines Scrn Ur MDMA Scrn (Ecstasy) U Benzodiazepines Scrn Urine Cocaine Screen U Marijuana (THC) Screen Chlamy pneumoniae PCR Adenovirus (PCR) B. pertussis DNA (PCR) B.parapertussis DNA PCR Coronavirus OC43 (PCR) Coronavirus HKU1 (PCR) Coronavirus 229E (PCR) SARS-CoV-2 (PCR) Negative Coronavirus NL63 (PCR) Human Metapneumovir PCR Influenza Type A (PCR) Influenza Type B (PCR) M. pneumoniae (PCR) Parainfluenza 1 (PCR) Parainfluenza 2 (PCR) Parainfluenza 3 (PCR) Parainfluenza 4 (PCR) RSV (PCR) Entero/Rhino (PCR) 12/23/20 12/23/20 12/23/20 19:40 19:40 19:40 WBC RBC Hgb Hct MCV MCH MCHC RDW Plt Count Neut % (Auto) Lymph % (Auto) Talbot % (Auto) Eos % (Auto) Baso % (Auto) Neut # (Auto) Lymph # (Auto) Talbot # (Auto) Eos # (Auto) Baso # (Auto) Sodium Potassium Chloride Carbon Dioxide BUN Creatinine Estimated GFR BUN/Creatinine Ratio Glucose Lactate 3.3 H Calcium Total Bilirubin AST ALT Alkaline Phosphatase Total Creatine Kinase CK-MB (CK-2) CK-MB (CK-2) Rel Index Troponin I C-Reactive Protein 0.7 NT-Pro-B Natriuret Pep Total Protein Albumin Globulin Albumin/Globulin Ratio Lipase Procalcitonin < 0.03 Urine RBC Urine WBC Urine Bacteria Ur Culture Indicated? U Opiates 300ng/mL cut Ur Oxycodone Screen Urine Methadone Screen Ur Barbiturates Screen U Tricyclic Antidepress Ur Phencyclidine Scrn Ur Amphetamines Screen U Methamphetamines Scrn Ur MDMA Scrn (Ecstasy) U Benzodiazepines Scrn Urine Cocaine Screen U Marijuana (THC) Screen Chlamy pneumoniae PCR Adenovirus (PCR) B. pertussis DNA (PCR) B.parapertussis DNA PCR Coronavirus OC43 (PCR) Coronavirus HKU1 (PCR) Coronavirus 229E (PCR) SARS-CoV-2 (PCR) Coronavirus NL63 (PCR) Human Metapneumovir PCR Influenza Type A (PCR) Influenza Type B (PCR) M. pneumoniae (PCR) Parainfluenza 1 (PCR) Parainfluenza 2 (PCR) Parainfluenza 3 (PCR) Parainfluenza 4 (PCR) RSV (PCR) Entero/Rhino (PCR) 12/23/20 12/23/20 12/23/20 21:30 21:30 22:30 WBC RBC Hgb Hct MCV MCH MCHC RDW Plt Count Neut % (Auto) Lymph % (Auto) Talbot % (Auto) Eos % (Auto) Baso % (Auto) Neut # (Auto) Lymph # (Auto) Talbot # (Auto) Eos # (Auto) Baso # (Auto) Sodium Potassium Chloride Carbon Dioxide BUN Creatinine Estimated GFR BUN/Creatinine Ratio Glucose Lactate 3.3 H Calcium Total Bilirubin AST ALT Alkaline Phosphatase Total Creatine Kinase CK-MB (CK-2) CK-MB (CK-2) Rel Index Troponin I C-Reactive Protein NT-Pro-B Natriuret Pep Total Protein Albumin Globulin Albumin/Globulin Ratio Lipase Procalcitonin Urine RBC Urine WBC Urine Bacteria Ur Culture Indicated? U Opiates 300ng/mL cut Ur Oxycodone Screen Urine Methadone Screen Ur Barbiturates Screen U Tricyclic Antidepress Ur Phencyclidine Scrn Ur Amphetamines Screen U Methamphetamines Scrn Ur MDMA Scrn (Ecstasy) U Benzodiazepines Scrn Urine Cocaine Screen U Marijuana (THC) Screen Chlamy pneumoniae PCR Not detected Adenovirus (PCR) Not detected B. pertussis DNA (PCR) Not detected B.parapertussis DNA PCR Not detected Coronavirus OC43 (PCR) Not detected Coronavirus HKU1 (PCR) Not detected Coronavirus 229E (PCR) Not detected SARS-CoV-2 (PCR) Negative Not detected Coronavirus NL63 (PCR) Not detected Human Metapneumovir PCR Not detected Influenza Type A (PCR) Not detected Influenza Type B (PCR) Not detected M. pneumoniae (PCR) Not detected Parainfluenza 1 (PCR) Not detected Parainfluenza 2 (PCR) Not detected Parainfluenza 3 (PCR) Not detected Parainfluenza 4 (PCR) Not detected RSV (PCR) Not detected Entero/Rhino (PCR) Not detected 12/24/20 12/24/20 12/24/20 02:20 02:20 04:35 WBC RBC Hgb Hct MCV MCH MCHC RDW Plt Count Neut % (Auto) Lymph % (Auto) Talbot % (Auto) Eos % (Auto) Baso % (Auto) Neut # (Auto) Lymph # (Auto) Talbot # (Auto) Eos # (Auto) Baso # (Auto) Sodium Potassium Chloride Carbon Dioxide BUN Creatinine Estimated GFR BUN/Creatinine Ratio Glucose Lactate Calcium Total Bilirubin AST ALT Alkaline Phosphatase Total Creatine Kinase CK-MB (CK-2) CK-MB (CK-2) Rel Index Troponin I C-Reactive Protein NT-Pro-B Natriuret Pep 308 H Total Protein Albumin Globulin Albumin/Globulin Ratio Lipase Procalcitonin Urine RBC None seen Urine WBC 0-1/hpf Urine Bacteria None seen Ur Culture Indicated? Cult not indicated U Opiates 300ng/mL cut Negative Ur Oxycodone Screen Negative Urine Methadone Screen Negative Ur Barbiturates Screen Negative U Tricyclic Antidepress Negative Ur Phencyclidine Scrn Negative Ur Amphetamines Screen Negative U Methamphetamines Scrn Negative Ur MDMA Scrn (Ecstasy) Negative U Benzodiazepines Scrn Negative Urine Cocaine Screen Negative U Marijuana (THC) Screen Positive H Chlamy pneumoniae PCR Adenovirus (PCR) B. pertussis DNA (PCR) B.parapertussis DNA PCR Coronavirus OC43 (PCR) Coronavirus HKU1 (PCR) Coronavirus 229E (PCR) SARS-CoV-2 (PCR) Coronavirus NL63 (PCR) Human Metapneumovir PCR Influenza Type A (PCR) Influenza Type B (PCR) M. pneumoniae (PCR) Parainfluenza 1 (PCR) Parainfluenza 2 (PCR) Parainfluenza 3 (PCR) Parainfluenza 4 (PCR) RSV (PCR) Entero/Rhino (PCR) 12/24/20 12/24/20 04:35 04:35 WBC 14.6 H RBC 4.57 Hgb 14.1 Hct 41.6 MCV 91.0 MCH 30.8 MCHC 33.9 RDW 13.2 Plt Count 264 Neut % (Auto) 80.0 H Lymph % (Auto) 14.9 L Talbot % (Auto) 4.6 Eos % (Auto) 0.0 L Baso % (Auto) 0.5 Neut # (Auto) 87920 H Lymph # (Auto) 2200 Talbot # (Auto) 700 Eos # (Auto) 0 Baso # (Auto) 100 Sodium Potassium Chloride Carbon Dioxide BUN Creatinine Estimated GFR BUN/Creatinine Ratio Glucose Lactate 1.5 Calcium Total Bilirubin AST ALT Alkaline Phosphatase Total Creatine Kinase CK-MB (CK-2) CK-MB (CK-2) Rel Index Troponin I C-Reactive Protein NT-Pro-B Natriuret Pep Total Protein Albumin Globulin Albumin/Globulin Ratio Lipase Procalcitonin Urine RBC Urine WBC Urine Bacteria Ur Culture Indicated? U Opiates 300ng/mL cut Ur Oxycodone Screen Urine Methadone Screen Ur Barbiturates Screen U Tricyclic Antidepress Ur Phencyclidine Scrn Ur Amphetamines Screen U Methamphetamines Scrn Ur MDMA Scrn (Ecstasy) U Benzodiazepines Scrn Urine Cocaine Screen U Marijuana (THC) Screen Chlamy pneumoniae PCR Adenovirus (PCR) B. pertussis DNA (PCR) B.parapertussis DNA PCR Coronavirus OC43 (PCR) Coronavirus HKU1 (PCR) Coronavirus 229E (PCR) SARS-CoV-2 (PCR) Coronavirus NL63 (PCR) Human Metapneumovir PCR Influenza Type A (PCR) Influenza Type B (PCR) M. pneumoniae (PCR) Parainfluenza 1 (PCR) Parainfluenza 2 (PCR) Parainfluenza 3 (PCR) Parainfluenza 4 (PCR) RSV (PCR) Entero/Rhino (PCR) [facility] Medical History (Updated 12/24/20 @ 01:27 by SANDRA Ashby) Depression History of fracture of clavicle Surgical History (Updated 12/24/20 @ 01:27 by SADNRA Ashby) History of facial surgery Family History (Updated 12/24/20 @ 01:28 by SANDRA Ashby) Father Leukemia Mother Medical history unknown Social History household members: spouse Smoking Status: Former smoker alcohol intake: current Discharge Assessment & Plan Assessment and Plan Assessment: 1. Community-acquired pneumonia 2. High blood pressure 3. Depression Plan of Treatment: Discharge home Follow-up with PCP next week Discharge Plan Discharge Plan Patient Disposition: Home Discharge orders & Medications Prescriptions: New levofloxacin 750 mg tablet 750 mg PO DAILY Qty: 5 RF: 0 Discharge Health Status Multidrug resistant organism: No MDRO Diet/Activity/Treatments Diet: Diet as Tolerated Visit Report/Discharge Packet Instructions: Pneumonia-Adult, DI for Pneumonia -- Adult, How to Prevent Falls, How to Use Antibiotics Wisely Discharge Data Attending Provider: Neelima Jordan
[2020-12-24 14:00] VITALS: O2SAT 94
--- NOTE | 2020-12-24 14:10 | PC.NURSE ---
Day shift: Paperwork signed and all questions answered. Encouraged to get MD script filled and to take all of those medications as directed. He stated that he would. Temp today 98.6. VS WNL. RA 94%. Intermittent cough. Sputum culture pending. Dr Jefferson has talked with Pt and he feels that he is well enough to go home. This expert medical writer asked him if he was sure he was ready to go home and he stated I feel better and I want to go home now. He ate approx 50% of his lunch and denies any nausea or pain at this time. Voided approx 500 mls kelley color today. Pt also encouraged to drink extra water and to have urine be more of yellow than kelley. Pt also agreable to this. Pt wants to ambulate down to the entrance and then wants to walk home to his boat. He has been steady on his feet. Candida from will also talk with Pt prior to leaving today. Left unit at approx 1430 today.
--- NOTE | 2020-12-24 14:26 | CM.DANOTE ---
DCP/Assessment: Reviewed chart. Patient is a 50yr old male admitted to [facility] with loss of balance. No PCP listed. Primary payor is [employer]. Met briefly with patient explained CM/SW role. Patient completely dressed and ready to go at time of visit. Patient denies any d/c planning needs at this time. Patient with flat affect and provides very short answers to questions. Patient reports that he is currently staying on boat in [place] and plans to return to [place] when discharged. Patient reports that he has no d/c planning needs. P: Home [facility] Discharge Planning/Care Management CM Discharge Assessment Start: 12/24/20 14:21 Freq: Status: Active Protocol: Document 12/24/20 14:21 KJS (Rec: 12/24/20 14:26 KJS [id number]) Discharge Planning Assessment Assigned Filler Wiper VICTOR HUGO Douglas Contact Information Emily Covington (spouse) # [phone] Advance Directives? No History Provided By Patient,Medical Record Prior Living Arrangements House Household Members spouse Independent with ADL's Yes Is patient alert and oriented? Yes Barriers to Discharge No Transportation Arrangement Patient reports that he is currently staying on boat in [place]. Patient plans to return to boat via walking when medically stable. Referrals Initiated Other Additional Comment Patient declined any community resources. BO[employer]PERAT[employer] SUPERVISOR did instruct patient on how to obtain list of PCP's in the area from his payor source. Patient appreciative. Review Status In Process Next Review Type Continued Stay Review
== END 2020-12-24 14:46 | disposition home or self-care (01) ==
LOC: ED 20:00 → AC 22:30
PROVIDERS: Admitting Provider Nurse Practitioner Family; Emergency Provider Emergency Medicine; Visit Provider Nurse Practitioner Family
DX: J18.8 Other pneumonia, unspecified organism (principal); R07.9 Chest pain, unspecified; R11.2 Nausea with vomiting, unspecified; R03.0 Elevated blood-pressure reading, without diagnosis of hypertension; D72.829 Elevated white blood cell count, unspecified; F32.9 Major depressive disorder, single episode, unspecified; E66.9 Obesity, unspecified; Z68.41 Body mass index [BMI] 40.0-44.9, adult; Z20.822 Contact with and (suspected) exposure to COVID-19
CPT/HCPCS: 36415; 70450; 71045; 74177; 80053; 80305; 81003; 81015; 82550; 82553; 83605; 83690; 83880; 84145; 84484; 85025; 86140; 87040; 87070; 87205; 87633; 87635; 93005; 94760; 96361; 96365; 96372; 96375; 96376; 99285; C9803; G0378; J0696; J1644; J2060; J2405; J2765; Q9967

== ENCOUNTER → 2021-02-05 16:01 | Outpatient (CLI) | payer SELFPAY ==
[2020-12-23 23:02] VITALS: BMI 41.2
--- NOTE | 2021-02-05 16:05 | DI.RAD.S_ITS ---
PROCEDURE: XR CHEST 2V INDICATIONS: cough, LLL crackles, hx of PNA november TECHNIQUE: 2 views of the chest were acquired. COMPARISON: [facility], CR, XR CHEST 1V, 12/23/2020, 18:38. FINDINGS: Surgical changes and devices: Postsurgical changes in left clavicle. Lungs and pleura: Lungs are clear. No pleural effusions or pneumothorax. Mediastinum: Mediastinal contours are normal. Heart size is normal. Bones and chest wall: No suspicious bony abnormalities. Soft tissues appear unremarkable. IMPRESSION: No acute cardiopulmonary disease. Dictated by: Ronit Welsh M.D. on 02/05/2021 at 16:18 Approved by: Ronit Welsh M.D. on 02/05/2021 at 16:20
== END ==
PROVIDERS: Referring Provider Physician Assistant; Visit Provider Physician Assistant
DX: R09.89 Other specified symptoms and signs involving the circulatory and respiratory systems (principal); R05.9 Cough, unspecified; Z87.01 Personal history of pneumonia (recurrent)
CPT/HCPCS: 71046